=== PATIENT | male | born 2000 | race Caucasian/White ===

== ENCOUNTER 2023-06-09 06:53 | Emergency (ER) | payer OTHER ==
[2023-06-09] MEDS ORDERED: Fluorescein Opthalmic Strip ONE (07:19)
[2023-06-09] MEDS ORDERED: Tetracaine 0.5% PF 4 ML BOT ONE (07:20)
== END 2023-06-09 07:40 | disposition home or self-care (01) ==
LOC: CSHERS 06:53
DX: H10.9 Unspecified conjunctivitis (principal); R04.0 Epistaxis
CPT/HCPCS: 99283